=== PATIENT | female | born 2000 | race Asian ===

== ENCOUNTER 2023-01-01 15:07 | Inpatient (IN) ==
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
[2023-01-01 17:10] LABS: Basophils # (auto) 0.03 K/uL (0.00-0.20); Basophils % (auto) 0.3 %; Eosinophils # (auto) 0.04 K/uL (0.00-0.50); Eosinophils % (auto) 0.4 %; Hematocrit (blood only) 42.4 % (37.0-47.0); Hemoglobin 14.1 g/dl (12.0-16.0); Immature Granulocytes # (auto) 0.02 K/uL (0.01-0.20); Immature Granulocytes % (auto) 0.2 %; Lymphocytes # (auto) 2.92 K/uL (1.20-3.40); Lymphocytes % (auto) 32.6 %; Mean Corpuscular Hemoglobin 28.5 pg (25.0-34.0); Mean Corpuscular Hgb Conc 33.3 g/dL (32.0-36.0); Mean Corpuscular Volume 85.7 fL (80.0-100.0); Mean Platelet Volume 10.2 fL (9.4-12.4); Monocytes # (auto) 0.53 K/uL (0.11-0.59); Monocytes % (auto) 5.9 %; Neutrophils # (auto) 5.43 K/uL (1.40-6.50); Neutrophils % (auto) 60.6 %; Platelet Count 291 K/uL (130-400); RDW Standard Deviation 43.6 fL (36.4-46.3); Red Blood Count 4.95 M/uL (4.20-5.40); White Blood Count 8.97 K/ul (4.8-10.8)
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
[2023-01-01 17:24] LABS: Pregnancy Test, Serum Negative (Negative)
[2023-01-01 17:26] LABS: Albumin Globulin Ratio 1.4 (0.9-2); Albumin Level 4.5 gm/dl (3.4-5.0); BUN Creatinine Ratio 18.9 (10-20); Bilirubin,Total 0.4 mg/dl (0.2-1.0); Calcium 9.9 mg/dl (8.6-10.3); Creatinine Clr Calc Pharmacy 94.2 ml/min; Est GFR (African American) 134.2 ml/min; Est GFR (Non-African American) 115.8 ml/min; Globulin 3.2 gm/dl (2.5-4.0); Potassium 4.4 mmol/L (3.5-5.1); Total Protein 7.7 gm/dl (6.0-8.3)
[2023-01-01 17:27] LABS: Acetaminophen < 3 ug/ml (10-30); Salicylate < 3.0 mg/dl (3.0-30)
[2023-01-01 19:38] LABS: Appearance Urine Clear (Clear); Bilirubin Urine Negative (Negative); Blood Urine Negative (Negative); Color Urine Yellow; Glucose Urine UA Negative (Negative); Ketones Urine Negative (Negative); Leukocyte Esterase Urine Negative (Negative); Nitrite Urine Negative (Negative); Protein Urine Negative (Negative); Specific Gravity Urine 1.009 (1.000-1.030); Urobilinogen Urine Negative (Negative); pH Urine 6.5 (4.5-7.5)
[2023-01-01 19:58] LABS: Amphetamines+Metham, Urine Neg (Neg); Barbiturates, Urine Neg (Neg); Benzodiazepine, Urine Neg (Neg); Cocaine, Urine Neg (Neg); MDMA (Ecstacy), Urine Neg (Neg); Methadone, Urine Neg (Neg); Opiate, Urine Neg (Neg); Phencyclidine, Urine Neg (Neg)
[2023-01-01] MEDS ORDERED: SODIUM CHLORIDE 0.65% NA SOLN 45 ML (OCEAN) PRN (22:33)
[2023-01-01] MEDS ORDERED: hydrOXYzine HCl 25 MG TAB PO PRN (22:33)
[2023-01-01] MEDS ORDERED: ACETAMINOPHEN 325 MG TAB PO PRN (22:33)
[2023-01-01] MEDS ORDERED: BISMUTH SUBSALICYLATE LIQD 236 ML PO PRN (22:33)
[2023-01-01] MEDS ORDERED: ALUMINUM/MAGNESIUM SUSP 30 ML UDC PO PRN (22:33)
[2023-01-01] MEDS ORDERED: NICOTINE POLACRILEX 2 MG GUM MT PRN (22:35)
[2023-01-01] MEDS ORDERED: Ativan PO Alcohol Withdrawal--Active Protocol PO PRN (22:36)
[2023-01-01] MEDS ORDERED: LORazepam 1 MG TAB PO PRN ×3 (22:36)
[2023-01-01] MEDS: hydrOXYzine HCl 25 MG TAB PO PRN (23:49)
[2023-01-02] MEDS: NICOTINE 14 MG/24 HR PATCH TD SCH (08:42)
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
[2023-01-02] MEDS: SERTRALINE HCL 50 MG TABLET PO SCH (15:47)
--- NOTE | 2023-01-02 17:45 | Electrocardiogram Report ---
Test Reason : Blood Pressure : / mmHG Vent. Rate : 086 BPM Atrial Rate : 086 BPM P-R Int : 120 ms QRS Dur : 074 ms QT Int : 348 ms P-R-T Axes : 048 058 047 degrees QTc Int : 416 ms Normal sinus rhythm Early repolarization No previous ECGs available Confirmed by Stephan Queen ([id number]) on 01/02/2023 5:45:37 PM Referred By: Confirmed By:Manuel Queen
[2023-01-02] MEDS: hydrOXYzine HCl 25 MG TAB PO PRN (21:37)
[2023-01-02] MEDS: MAGNESIUM HYDROXIDE SUSP 30 ML UDC PO PRN (21:39)
[2023-01-03] MEDS: NICOTINE 14 MG/24 HR PATCH TD SCH (07:57)
[2023-01-03] MEDS: SERTRALINE HCL 50 MG TABLET PO SCH (08:44)
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
[2023-01-03] MEDS: MAGNESIUM HYDROXIDE SUSP 30 ML UDC PO PRN (14:44)
[2023-01-03] MEDS ORDERED: traZODone HCL 100 MG TAB PO SCH (22:00)
[2023-01-04 09:04] LABS: Marijuana Quant, GCMS Urine 446 ng/mL (<5)
[2023-01-04] MEDS: SERTRALINE HCL 50 MG TABLET PO SCH (10:40)
[2023-01-04] MEDS: NICOTINE 14 MG/24 HR PATCH TD SCH (10:40)
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
[2023-01-04] MEDS: traZODone HCL 50 MG TAB PO SCH (22:21)
[2023-01-05] MEDS: traZODone HCL 50 MG TAB PO SCH (00:04)
[2023-01-05] MEDS: SERTRALINE HCL 50 MG TABLET PO SCH (09:13)
[2023-01-05] MEDS: NICOTINE 14 MG/24 HR PATCH TD SCH (09:13)
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
== END 2023-01-05 12:29 | disposition home or self-care (01) | DRG 885 ==
LOC: ED 15:07 → SUATTDRO 21:32 → 3S 21:32